=== PATIENT | female | born 1980 | race African-American/Black ===

== ENCOUNTER 2016-07-30 18:09 | Emergency (ER) | payer SELFPAY | END 2016-07-30 19:03 | disposition home or self-care (01) | LOC: D.ER 18:09 | DX: G56.02 Carpal tunnel syndrome, left upper limb (principal) ==

== ENCOUNTER 2019-12-04 11:34 | Emergency (ER) | payer SELFPAY ==
[~2019-12-04] VITALS: Ht 157.5 cm; Wt 112.7 kg
[2019-12-04 11:35] VITALS: BP 132/80; Ht 157.5 cm; Wt 112.7 kg
[2019-12-04 12:07] LABS: BASOPHILS 0.2 % (0-2); EOSINOPHILS 3.8 % (0-7); HEMATOCRIT 43.8 % (36.0-48.0); HEMOGLOBIN 13.9 g/dL (12-16); IMMATURE GRANULOCYTES 0.2 % (0-5); LYMPHOCYTES 25.9 % (15-50); MCH 25.3 pg (26.0-34.0); MCHC 31.7 g/dL (31.0-37.0); MCV 79.6 fL (80.0-100.0); MEAN PLATELET VOLUME 10.8 fL (7.4-10.4); NEUTROPHILS 62.9 % (40-80); PLATELET COUNT 278 10x3/uL (130-400); RDW 13.7 % (11.5-14.5); WBC 5.3 10x3/uL (4.8-10.8)
[2019-12-04 12:18] LABS: ANION GAP 9.3 mmol/L (8-16); CARBON DIOXIDE 26.9 mmol/L (21.0-32.0); CREATININE - SERUM 0.9 mg/dL (0.6-1.3); POTASSIUM - SERUM 4.2 mmol/L (3.5-5.1)
[2019-12-04 12:21] LABS: ALBUMIN 3.4 g/dL (3.4-5.0); BILIRUBIN - TOTAL 0.36 mg/dL (0.2-1.3); PROTEIN - SERUM 7.9 g/dL (6.4-8.2)
[2019-12-04 12:28] LABS: INR 0.98 (0.85-1.17); PROTIME 12.9 SECONDS (11.6-15.0)
[2019-12-04 12:29] LABS: D-DIMER-QUANTITATIVE 0.59 ug/mLFEU (0.20-0.54)
== END 2019-12-12 13:29 | disposition home or self-care (01) ==
LOC: D.ER 11:34
PROVIDERS: Family Medicine
DX: M25.561 Pain in right knee (principal)